=== PATIENT | male | born 1975 | race Caucasian/White ===

== ENCOUNTER → 2021-10-08 | Outpatient (CLI) | payer OTHER, SELFPAY ==
--- NOTE | 2021-10-08 13:00 | VAS_PTH ---
PATIENT: DANTE WILKERSON Jr. [id number] AGE/SX: 46/M ROOM: RE10/08/[address]: Dr. Dante Duncan MD : 1975 BED: DIS: 10/08/2021 SPEC #: [id number] RECD: 10/08/21 14:21 STATUS: EDUARDO DELMY #: [id number] KEENAN: 10/08/21 13:[address]: Dante Duncan DEPT: SURGICAL PATHOLOGY RECD BY: Magdalena Hopkins Tissues: A - Vas deferens, NOS B - Vas deferens, NOS Procedures: Surgery Specimen Level II HEADER OPERATION: Bilateral partial vasectomy PRE-OP DIAGNOSIS: Sterilization TISSUE SUBMITTED: A ? Right vas deferens, B ? Left vas deferens MICROSCOPIC DIAGNOSIS A. Right vas deferens, partial vasectomy: Completely transected segment of vas deferens, no pathologic diagnosis. B. Left vas deferens, partial vasectomy: Completely transected segment of vas deferens, no pathologic diagnosis. DHARA:arun 10/12/2021 MICROSCOPIC DESCRIPTION Slides are reviewed. GROSS DESCRIPTION A - Received is one container designated right vas deferens. The specimen consists of a tubular segment of weiss soft tissue measuring 1.5 cm in length and 0.2 cm in diameter. The specimen is sectioned and submitted entirely in one cassette. B - Received is one container designated left vas deferens. The specimen consists of a tubular segment of weiss soft tissue measuring 1.5 cm in length and 0.2 cm in diameter. The specimen is sectioned and submitted entirely in one cassette. / Lopez 10/11/2021 TC:4 CPT: 57173 x2
== END | disposition home or self-care (01) ==
LOC: LABSPEC 14:46
PROVIDERS: Visit Provider Surgery
DX: Z30.2 Encounter for sterilization (principal)
CPT/HCPCS: 88302

== ENCOUNTER → 2021-11-12 | Outpatient (CLI) | payer OTHER, SELFPAY ==
[2021-11-12 17:14] LABS: Semen Analysis Post Vas ABSENT
[2021-11-15 13:02] LABS: Pathologist Review Reviewed
== END | disposition home or self-care (01) ==
PROVIDERS: Referring Provider Surgery; Visit Provider Surgery
DX: Z30.2 Encounter for sterilization (principal); Z98.52 Vasectomy status
CPT/HCPCS: 89321

== ENCOUNTER → 2021-11-18 | Outpatient (CLI) | payer OTHER, SELFPAY ==
[2021-11-18 11:15] LABS: Semen Analysis Post Vas ABSENT
[2021-11-19 13:13] LABS: Pathologist Review Reviewed
== END | disposition home or self-care (01) ==
LOC: LABSPEC 09:08
PROVIDERS: Referring Provider Surgery; Visit Provider Surgery
DX: Z30.2 Encounter for sterilization (principal); Z98.52 Vasectomy status
CPT/HCPCS: 89321

== ENCOUNTER → 2024-05-03 | Outpatient (CLI) | payer OTHER, SELFPAY ==
[2024-05-09 16:08] LABS: Cotinine Screen Blood 1.9 ng/mL (.); Nicotine Blood <1.0 ng/mL (.)
== END | disposition home or self-care (01) ==
PROVIDERS: Referring Provider Registered Nurse; Visit Provider Registered Nurse
DX: Z00.00 Encounter for general adult medical examination without abnormal findings (principal)
CPT/HCPCS: 80323; G0480